=== PATIENT | female | born 1975 | race Native Hawaiian/Other Pacific Islander ===

== ENCOUNTER 2018-10-14 20:52 | Emergency (ER) | payer OTHER | END 2018-10-14 21:10 | disposition home or self-care (01) | LOC: ED 20:52 | DX: R51 Headache (principal) | CPT/HCPCS: 99281 ==

== ENCOUNTER 2018-10-16 13:05 | Emergency (ER) | payer OTHER ==
[~2018-10-16] VITALS: Ht 165.1 cm; Wt 90.7 kg
[2018-10-16 14:19] LABS: PLATELET COUNT 283 K/uL (152-353)
[2018-10-16 14:27] LABS: POTASSIUM 4.5 mmol/L (3.6-5.2); SODIUM 141 mmol/L (136-145)
[2018-10-16 16:10] VITALS: BP 121/76; TEMP 98.3
== END 2018-10-16 16:10 | disposition home or self-care (01) ==
LOC: ED 13:05
PROVIDERS: Emergency Medicine
DX: G89.29 Other chronic pain (principal); R20.2 Paresthesia of skin
CPT/HCPCS: 36415; 80053; 81000; 83735; 84443; 84484; 85027; 99283

== ENCOUNTER 2018-12-08 14:14 | Outpatient (CLI) | payer OTHER | END 2018-12-08 21:11 | disposition home or self-care (01) | LOC: MAMMO 14:14 | DX: Z12.31 Encounter for screening mammogram for malignant neoplasm of breast (principal) ==

== ENCOUNTER 2018-12-27 03:28 | Emergency (ER) | payer OTHER ==
[~2018-12-27] VITALS: Ht 165.1 cm; Wt 95.7 kg
[2018-12-27 04:40] LABS: PLATELET COUNT 260 K/uL (152-353)
[2018-12-27 04:49] LABS: POTASSIUM 4.1 mmol/L (3.6-5.2)
[2018-12-27 05:15] VITALS: BP 102/71; TEMP 98.3
== END 2018-12-27 05:15 | disposition home or self-care (01) ==
LOC: ED 03:28
PROVIDERS: Family Medicine
DX: J44.1 Chronic obstructive pulmonary disease with (acute) exacerbation (principal)
CPT/HCPCS: 36415; 80053; 85027; 94664; 96372; 99283; J1020

== ENCOUNTER 2019-06-20 13:10 | Emergency (ER) | payer OTHER ==
[~2019-06-20] VITALS: Ht 165.1 cm; Wt 95.7 kg
[2019-06-20 14:12] LABS: PLATELET COUNT 328 K/uL (152-353)
[2019-06-20 14:20] LABS: POTASSIUM 3.4 mmol/L (3.6-5.2)
[2019-06-20 14:31] LABS: PARTIAL THROMBOPLASTIN TIME 28.8 SECONDS (24.5-33.6)
[2019-06-20 15:00] VITALS: BP 134/78; TEMP 97.6
== END 2019-06-20 15:00 | disposition home or self-care (01) ==
LOC: ED 13:10
PROVIDERS: Hospitalist
DX: J44.1 Chronic obstructive pulmonary disease with (acute) exacerbation (principal); J40 Bronchitis, not specified as acute or chronic; A60.00 Herpesviral infection of urogenital system, unspecified; F17.210 Nicotine dependence, cigarettes, uncomplicated
CPT/HCPCS: 36415; 80053; 81000; 81025; 85027; 85610; 85730; 94664; 96374; 99284; J2930

== ENCOUNTER 2019-09-20 16:29 | Emergency (ER) | payer OTHER ==
[~2019-09-20] VITALS: Ht 154.9 cm; Wt 107.5 kg
[2019-09-20 16:35] VITALS: TEMP 98.1
[2019-09-20 17:49] LABS: PLATELET COUNT 287 K/uL (152-353)
[2019-09-20 17:51] LABS: POTASSIUM 3.7 mmol/L (3.6-5.2); SODIUM 141 mmol/L (136-145)
[2019-09-20 18:01] LABS: PARTIAL THROMBOPLASTIN TIME 28.5 SECONDS (24.5-33.6)
[2019-09-20 18:44] VITALS: BP 129/87
== END 2019-09-20 18:44 | disposition home or self-care (01) ==
LOC: ED 16:29
PROVIDERS: Student in an Organized Health Care Education/Training Program
DX: J44.1 Chronic obstructive pulmonary disease with (acute) exacerbation (principal)
CPT/HCPCS: 80048; 83735; 84484; 85027; 85610; 85730; 93005; 94664; 96374; 99284; J2930

== ENCOUNTER 2019-09-27 16:33 | Outpatient (CLI) | payer OTHER | END 2019-09-27 19:43 | disposition home or self-care (01) | LOC: LABW 16:33 | DX: J44.9 Chronic obstructive pulmonary disease, unspecified (principal); F31.9 Bipolar disorder, unspecified | CPT/HCPCS: 80307 ==

== ENCOUNTER 2020-02-14 14:47 | Outpatient (CLI) | payer OTHER | END 2020-02-14 19:56 | disposition home or self-care (01) | LOC: RAD 14:47 | DX: Z13.820 Encounter for screening for osteoporosis (principal) ==

== ENCOUNTER 2020-03-25 12:20 | Emergency (ER) | payer OTHER ==
[~2020-03-25] VITALS: Ht 154.9 cm; Wt 107.5 kg
[2020-03-25 12:23] VITALS: BP 134/87
[2020-03-25 13:17] LABS: PLATELET COUNT 309 K/uL (152-353)
[2020-03-25 13:19] LABS: POTASSIUM 3.8 mmol/L (3.6-5.2)
[2020-03-25 14:08] VITALS: TEMP 98.4
== END 2020-03-25 14:08 | disposition home or self-care (01) ==
LOC: ED 12:20
PROVIDERS: Hospitalist
DX: J06.9 Acute upper respiratory infection, unspecified (principal); R50.9 Fever, unspecified; Z20.828 Contact with and (suspected) exposure to other viral communicable diseases
CPT/HCPCS: 36415; 80048; 85027; 87502; 87635; 87651; 96365; 99284; J0696; U00003

== ENCOUNTER 2020-04-01 11:19 | Emergency (ER) | payer OTHER ==
[~2020-04-01] VITALS: Ht 154.9 cm; Wt 107.5 kg
[2020-04-01 11:51] VITALS: TEMP 98.9
[2020-04-01 12:16] LABS: PLATELET COUNT 263 K/uL (152-353)
[2020-04-01 12:24] LABS: POTASSIUM 3.9 mmol/L (3.6-5.2)
[2020-04-01 14:58] VITALS: BP 133/87
== END 2020-04-01 14:58 | disposition home or self-care (01) ==
LOC: ED 11:19
PROVIDERS: General Practice
DX: J44.1 Chronic obstructive pulmonary disease with (acute) exacerbation (principal); Z20.828 Contact with and (suspected) exposure to other viral communicable diseases
CPT/HCPCS: 80053; 85027; 87635; 94664; 96372; 99283; J2920; U00003

== ENCOUNTER 2020-06-10 21:48 | Emergency (ER) | payer OTHER ==
[~2020-06-10] VITALS: Ht 149.9 cm; Wt 104.3 kg
[2020-06-10 22:48] LABS: PLATELET COUNT 309 K/uL (152-353)
[2020-06-10 23:20] VITALS: BP 138/85; TEMP 98.5
== END 2020-06-10 23:20 | disposition home or self-care (01) ==
LOC: ED 21:48
PROVIDERS: Hospitalist
DX: J44.1 Chronic obstructive pulmonary disease with (acute) exacerbation (principal); J06.9 Acute upper respiratory infection, unspecified; J40 Bronchitis, not specified as acute or chronic; F17.210 Nicotine dependence, cigarettes, uncomplicated
CPT/HCPCS: 80053; 82550; 82553; 84484; 85027; 87502; 87635; 87651; 93005; 94664; 96374; 99284; J2930; U0003

== ENCOUNTER 2020-09-13 18:20 | Emergency (ER) | payer OTHER ==
[~2020-09-13] VITALS: Ht 149.9 cm; Wt 104.3 kg
[2020-09-13 20:58] LABS: PLATELET COUNT 327 K/uL (152-353)
[2020-09-13 21:01] LABS: POTASSIUM 3.8 mmol/L (3.6-5.2)
[2020-09-13 21:10] LABS: PARTIAL THROMBOPLASTIN TIME 30.6 SECONDS (24.5-33.6)
[2020-09-13 23:00] VITALS: BP 132/85; TEMP 97.9
== END 2020-09-13 23:00 | disposition home or self-care (01) ==
LOC: ED 18:20
PROVIDERS: Hospitalist
DX: R10.84 Generalized abdominal pain (principal); R11.2 Nausea with vomiting, unspecified
CPT/HCPCS: 36415; 80053; 81000; 81025; 85027; 85610; 85730; 96360; 96365; 96375; 99284; J0696; J1170; J1885; J2270; J2405

== ENCOUNTER 2020-11-25 18:43 | Emergency (ER) | payer OTHER ==
[~2020-11-25] VITALS: Ht 149.9 cm; Wt 108.4 kg
[2020-11-25 19:16] VITALS: BP 114/77; TEMP 98.9
== END 2020-11-25 20:25 | disposition home or self-care (01) ==
LOC: ED 18:43
DX: R06.02 Shortness of breath (principal)
CPT/HCPCS: 99281

== ENCOUNTER 2020-11-25 22:26 | Emergency (ER) | payer OTHER ==
[~2020-11-25] VITALS: Ht 152.4 cm; Wt 108.0 kg
[2020-11-25 23:06] LABS: PLATELET COUNT 327 K/uL (152-353)
[2020-11-25 23:13] LABS: POTASSIUM 4.2 mmol/L (3.6-5.2); SODIUM 137 mmol/L (136-145)
[2020-11-26 00:26] VITALS: BP 118/74; TEMP 98
== END 2020-11-26 00:26 | disposition home or self-care (01) ==
LOC: ED 22:26
PROVIDERS: Hospitalist
DX: J44.1 Chronic obstructive pulmonary disease with (acute) exacerbation (principal); J40 Bronchitis, not specified as acute or chronic; Z20.828 Contact with and (suspected) exposure to other viral communicable diseases; F17.210 Nicotine dependence, cigarettes, uncomplicated
CPT/HCPCS: 80053; 82550; 83880; 84484; 85027; 85610; 85730; 87635; 93005; 94664; 96365; 96375; 99284; J0696; J1100; J2405; U0003

== ENCOUNTER 2021-03-24 10:11 | Emergency (ER) | payer OTHER ==
[~2021-03-24] VITALS: Ht 154.9 cm; Wt 99.8 kg
[2021-03-24 10:15] VITALS: TEMP 98.8
[2021-03-24] MEDS ORDERED: AMLODIPINE BESYLATE PO (10:23)
[2021-03-24] MEDS ORDERED: PROPRANOLOL10 MG PO (10:23)
[2021-03-24] MEDS ORDERED: ANORO ELLIPTA 61 AER INH (10:23)
[2021-03-24 10:55] LABS: PLATELET COUNT 300 K/uL (152-353)
[2021-03-24 11:10] LABS: POTASSIUM 4.1 mmol/L (3.6-5.2); SODIUM 140 mmol/L (136-145)
[2021-03-24 11:25] LABS: PARTIAL THROMBOPLASTIN TIME 28.6 SECONDS (24.5-33.6)
[2021-03-24 13:15] VITALS: BP 146/90
== END 2021-03-24 13:15 | disposition home or self-care (01) ==
LOC: ED 10:11
PROVIDERS: Family Medicine
DX: J44.1 Chronic obstructive pulmonary disease with (acute) exacerbation (principal)
CPT/HCPCS: 36415; 80053; 82550; 84484; 85027; 85379; 85610; 85730; 87635; 93005; 94664; 96365; 96375; 99284; J0696; J2930; U0003

== ENCOUNTER 2021-03-30 12:03 | Emergency (ER) | payer OTHER ==
[~2021-03-30] VITALS: Ht 154.9 cm; Wt 99.8 kg
[~2021-03-30 12:03] MED LIST: AMLODIPINE BESYLATE PO; ANORO ELLIPTA 61 AER INH; PROPRANOLOL10 MG PO
[2021-03-30 13:55] LABS: PLATELET COUNT 358 K/uL (152-353)
[2021-03-30 14:05] LABS: POTASSIUM 3.4 mmol/L (3.6-5.2)
[2021-03-30 14:50] VITALS: BP 119/73; TEMP 97.5
== END 2021-03-30 14:50 | disposition home or self-care (01) ==
LOC: ED 12:03
PROVIDERS: Family Medicine
DX: J44.1 Chronic obstructive pulmonary disease with (acute) exacerbation (principal); R05 Cough; F17.210 Nicotine dependence, cigarettes, uncomplicated
CPT/HCPCS: 80053; 85007; 85027; 94664; 96372; 99282; J2930

== ENCOUNTER 2021-06-19 18:07 | Emergency (ER) | payer OTHER ==
[~2021-06-19] VITALS: Ht 154.9 cm; Wt 99.8 kg
[2021-06-19 18:24] VITALS: TEMP 98.2
[2021-06-19 18:51] LABS: PLATELET COUNT 322 K/uL (152-353)
[2021-06-19 19:21] LABS: POTASSIUM 4.2 mmol/L (3.6-5.2)
[2021-06-19 20:53] VITALS: BP 125/78
== END 2021-06-19 20:53 | disposition home or self-care (01) ==
LOC: ED 18:07
PROVIDERS: Emergency Medicine Emergency Medical Services
DX: R60.0 Localized edema (principal); L25.9 Unspecified contact dermatitis, unspecified cause
CPT/HCPCS: 36415; 80053; 81000; 81025; 85027; 96374; 96375; 99284; J1200; J1940; J2405; J2930

== ENCOUNTER 2021-07-21 11:33 | Emergency (ER) | payer OTHER ==
[~2021-07-21] VITALS: Ht 154.9 cm; Wt 115.7 kg
[2021-07-21 13:35] VITALS: BP 130/96; TEMP 99.1
== END 2021-07-21 13:35 | disposition home or self-care (01) ==
LOC: ED 11:33
DX: S30.0XXA Contusion of lower back and pelvis, initial encounter (principal); S83.8X1A Sprain of other specified parts of right knee, initial encounter; W17.89XA Other fall from one level to another, initial encounter; Y92.098 Other place in other non-institutional residence as the place of occurrence of the external cause
CPT/HCPCS: 96372; 99283; J1170

== ENCOUNTER 2021-08-07 15:35 | Emergency (ER) | payer OTHER ==
[~2021-08-07] VITALS: Ht 152.4 cm; Wt 115.7 kg
[2021-08-07 15:44] VITALS: TEMP 97.4
[2021-08-07 16:30] LABS: PLATELET COUNT 372 K/uL (152-353)
[2021-08-07 16:37] VITALS: BP 137/83
[2021-08-07 16:44] LABS: POTASSIUM 3.8 mmol/L (3.6-5.2)
== END 2021-08-07 18:14 | disposition home or self-care (01) ==
LOC: ED 15:35
PROVIDERS: Emergency Medicine Emergency Medical Services
DX: R55 Syncope and collapse (principal)
CPT/HCPCS: 80053; 80307; 81000; 81025; 83735; 84484; 85027; 93005; 99284

== ENCOUNTER 2021-10-06 14:24 | Emergency (ER) | payer OTHER ==
[~2021-10-06] VITALS: Ht 152.4 cm; Wt 115.7 kg
[2021-10-06 14:49] VITALS: BP 134/82; TEMP 98.8
== END 2021-10-06 18:17 | disposition home or self-care (01) ==
LOC: ED 14:24
DX: M79.18 Myalgia, other site (principal); M54.89 Other dorsalgia; W10.8XXA Fall (on) (from) other stairs and steps, initial encounter; Y92.098 Other place in other non-institutional residence as the place of occurrence of the external cause
CPT/HCPCS: 96372; 99283; J1200; J1885

== ENCOUNTER 2021-10-30 14:32 | Outpatient (CLI) | payer OTHER | END 2021-10-30 19:03 | disposition home or self-care (01) | LOC: RAD 14:32 | PROVIDERS: ATTEND Orthopaedic Surgery | DX: M25.561 Pain in right knee (principal) ==

== ENCOUNTER 2022-02-11 22:29 | Emergency (ER) | payer OTHER ==
[~2022-02-11] VITALS: Ht 154.9 cm; Wt 99.8 kg
[2022-02-12] MEDS ORDERED: CLINDAMYCIN HY300 MG PO (01:05)
[2022-02-12 01:50] VITALS: BP 155/89; TEMP 98.6
== END 2022-02-12 01:50 | disposition home or self-care (01) ==
LOC: ED 22:29
DX: L03.113 Cellulitis of right upper limb (principal)
CPT/HCPCS: 99282

== ENCOUNTER 2022-02-13 18:31 | Inpatient (IN) | payer OTHER ==
[~2022-02-13] VITALS: Ht 154.9 cm; Wt 120.8 kg
[~2022-02-13 18:31] MED LIST changes: +CLINDAMYCIN HY300 MG PO
[2022-02-13 18:45] VITALS: BP 122/77; TEMP 98.9
[2022-02-13 19:41] LABS: PLATELET COUNT 292 K/uL (152-353)
[2022-02-13 21:53] VITALS: BP 140/85; TEMP 98.6; Ht 154.9 cm; Wt 120.8 kg
[2022-02-13 22:45] VITALS: BP 140/85; TEMP 98.6
[2022-02-13 23:23] VITALS: BP 113/62; TEMP 97.8
[2022-02-14 03:44] VITALS: BP 125/87; TEMP 97.5
[2022-02-14 05:07] LABS: PLATELET COUNT 222 K/uL (152-353)
[2022-02-14 05:25] LABS: POTASSIUM 3.9 mmol/L (3.6-5.2)
[2022-02-14 08:00] VITALS: BP 168/99; TEMP 98.2
[2022-02-14] MEDS ORDERED: CITALOPRAM40 MG PO (09:59)
[2022-02-14] MEDS ORDERED: ADDERALL30 MG PO (10:00)
[2022-02-14] MEDS ORDERED: CLON0.5T36 PO (10:01)
[2022-02-14] MEDS ORDERED: ARIPIPRAZOLE30 MG PO (10:02)
[2022-02-14] MEDS ORDERED: NEURONTIN800 MG PO (10:03)
[2022-02-14] MEDS ORDERED: LATUDA40 MG PO (10:04)
[2022-02-14] MEDS ORDERED: AMLODIPINE BESYLATE PO (10:05)
[2022-02-14 12:00] VITALS: BP 147/90; TEMP 98
[2022-02-14 16:05] VITALS: BP 163/95; TEMP 98.2
[2022-02-14 20:00] VITALS: BP 145/84; TEMP 98.1
[2022-02-15] VITALS (7 sets, daily range): BP systolic 118–150; BP diastolic 73–88; TEMP 97.4–98.8
[2022-02-16 03:48] VITALS: BP 144/91; TEMP 98.2
[2022-02-16 05:16] LABS: POTASSIUM 3.8 mmol/L (3.6-5.2)
[2022-02-16 05:17] LABS: PLATELET COUNT 261 K/uL (152-353)
[2022-02-16 08:00] VITALS: BP 156/92; TEMP 98.2
[2022-02-16 12:00] VITALS: BP 153/93; TEMP 98.6
[2022-02-16 16:00] VITALS: BP 131/88; TEMP 98.7
[2022-02-16 19:46] VITALS: BP 119/72; TEMP 97.6
[2022-02-16 23:49] VITALS: BP 128/82; TEMP 98.7
[2022-02-17 04:03] VITALS: BP 143/71; TEMP 98.7
[2022-02-17 08:00] VITALS: BP 133/74; TEMP 97.9
[2022-02-17 08:47] LABS: PLATELET COUNT 288 K/uL (152-353)
[2022-02-17 08:48] LABS: POTASSIUM 4.3 mmol/L (3.6-5.2)
[2022-02-17 12:00] VITALS: BP 133/78; TEMP 98.1
== END 2022-02-17 13:28 | disposition home or self-care (01) | DRG 603 ==
LOC: ED 18:31 → MED/SURG 20:43
PROVIDERS: ADMIT Emergency Medicine; ATTEND Internal Medicine
DX: L03.113 Cellulitis of right upper limb (principal); F31.89 Other bipolar disorder; I10 Essential (primary) hypertension; J44.9 Chronic obstructive pulmonary disease, unspecified
CPT/HCPCS: 36415; 80048; 80053; 80202; 85027; 85379; 85610; 87040; 87635; 96365; 96375; 99284; J1885; J2270; J2405; J3370; U0003

== ENCOUNTER 2022-02-23 23:33 | Emergency (ER) | payer OTHER ==
[~2022-02-23] VITALS: Ht 154.9 cm; Wt 117.5 kg
[~2022-02-23 23:33] MED LIST changes: +ADDERALL30 MG PO; +ARIPIPRAZOLE30 MG PO; +CITALOPRAM40 MG PO; +CLON0.5T36 PO; +LATUDA40 MG PO; +NEURONTIN800 MG PO
[2022-02-24 01:05] VITALS: BP 118/81; TEMP 98.5
== END 2022-02-24 01:05 | disposition home or self-care (01) ==
LOC: ED 23:33
DX: Z48.01 Encounter for change or removal of surgical wound dressing (principal); Z98.890 Other specified postprocedural states
CPT/HCPCS: 96372; 99283; J0696; J1170; J2405

== ENCOUNTER 2022-02-25 07:51 | Emergency (ER) | payer OTHER ==
[~2022-02-25] VITALS: Ht 154.9 cm; Wt 117.5 kg
[2022-02-25 07:59] VITALS: TEMP 98
[2022-02-25 08:52] VITALS: BP 156/92
== END 2022-02-25 09:33 | disposition home or self-care (01) ==
LOC: ED 07:51
DX: S51.001D Unspecified open wound of right elbow, subsequent encounter (principal); Z87.898 Personal history of other specified conditions; X58.XXXD Exposure to other specified factors, subsequent encounter; Y92.89 Other specified places as the place of occurrence of the external cause
CPT/HCPCS: 99283

== ENCOUNTER 2022-03-04 12:13 | Emergency (ER) | payer OTHER ==
[~2022-03-04] VITALS: Ht 154.9 cm; Wt 117.5 kg
[2022-03-04 12:15] VITALS: TEMP 99
[2022-03-04 13:45] VITALS: BP 145/67
== END 2022-03-04 13:45 | disposition home or self-care (01) ==
LOC: ED 12:13
DX: L03.113 Cellulitis of right upper limb (principal); Z98.890 Other specified postprocedural states
CPT/HCPCS: 99282; J0696

== ENCOUNTER 2022-05-08 08:31 | Emergency (ER) | payer OTHER ==
[~2022-05-08] VITALS: Ht 154.9 cm; Wt 117.5 kg
[2022-05-08 08:35] VITALS: BP 144/86; TEMP 98.5
== END 2022-05-08 08:54 | disposition left against medical advice (07) ==
LOC: ED 08:31
DX: K52.89 Other specified noninfective gastroenteritis and colitis (principal); M79.672 Pain in left foot; M79.671 Pain in right foot; G89.29 Other chronic pain
CPT/HCPCS: 99282

== ENCOUNTER 2022-07-21 13:07 | Emergency (ER) | payer OTHER ==
[~2022-07-21] VITALS: Ht 154.9 cm; Wt 102.1 kg
[2022-07-21 13:13] VITALS: TEMP 98.9
[2022-07-21 14:11] LABS: PLATELET COUNT 323 K/uL (152-353)
[2022-07-21 14:22] LABS: POTASSIUM 3.6 mmol/L (3.6-5.2)
[2022-07-21 15:22] VITALS: BP 126/78
== END 2022-07-21 15:23 | disposition home or self-care (01) ==
LOC: ED 13:07
PROVIDERS: Family Medicine
DX: J44.1 Chronic obstructive pulmonary disease with (acute) exacerbation (principal); R05.8 Other specified cough; N39.498 Other specified urinary incontinence; Z20.822 Contact with and (suspected) exposure to COVID-19; F17.210 Nicotine dependence, cigarettes, uncomplicated
CPT/HCPCS: 80053; 85027; 87502; 87635; 94664; 96372; 99283; J2930; U0003

== ENCOUNTER 2022-08-09 20:44 | Emergency (ER) | payer OTHER ==
[~2022-08-09] VITALS: Ht 154.9 cm; Wt 102.1 kg
[2022-08-09 22:16] VITALS: BP 159/90; TEMP 98.1
== END 2022-08-09 22:16 | disposition home or self-care (01) ==
LOC: ED 20:44
DX: J44.1 Chronic obstructive pulmonary disease with (acute) exacerbation (principal); Z11.52 Encounter for screening for COVID-19
CPT/HCPCS: 87502; 87635; 94664; 96372; 99283; J2930; U0003

== ENCOUNTER 2022-11-25 18:15 | Emergency (ER) | payer OTHER ==
[~2022-11-25] VITALS: Ht 154.9 cm; Wt 127.0 kg
[2022-11-25 18:30] VITALS: BP 120/58; TEMP 99.3
[2022-11-25 19:31] LABS: POTASSIUM 4.3 mmol/L (3.6-5.2)
== END 2022-11-25 20:00 | disposition home or self-care (01) ==
LOC: ED 18:15
PROVIDERS: Emergency Medicine Emergency Medical Services
DX: M77.42 Metatarsalgia, left foot (principal); M77.41 Metatarsalgia, right foot; M79.671 Pain in right foot
CPT/HCPCS: 36415; 80048; 81025; 84550; 99283

== ENCOUNTER 2023-02-15 18:45 | Emergency (ER) | payer OTHER ==
[~2023-02-15] VITALS: Ht 154.9 cm; Wt 99.8 kg
[2023-02-15 18:50] VITALS: BP 108/75; TEMP 97.6
== END 2023-02-15 20:00 | disposition left against medical advice (07) ==
LOC: ED 18:45
DX: Z53.21 Procedure and treatment not carried out due to patient leaving prior to being seen by health care provider (principal)
CPT/HCPCS: 87502; 87651; 99283